=== PATIENT | male | born 1985 | race Caucasian/White ===

== ENCOUNTER 2020-09-05 22:25 | Emergency (ER) | payer OTHER ==
[2020-09-05 22:50] LABS: BASOPHIL 0.7 % (0-2); HCT 45.4 % (42.0-52.0); HGB 15.6 g/dl (13.2-18.0); MCH 30.2 pg (25.0-31.0); MCHC 34.4 g/dL (32.0-36.0); MCV 87.8 fL (78.0-100.0); MONOCYTE 9.9 % (0-12); MPV 9.4 fL (6.0-9.5); NRBC 0; PLT 343 K/uL (150-400); RBC 5.17 M/uL (4.70-6.00); WBC 10.7 K/uL (4.0-10.5)
[2020-09-05 22:57] LABS: BILIRUBIN NEGATIVE (NEGATIVE); BLOOD NEGATIVE Ery/uL (NEGATIVE); CLARITY CLEAR (CLEAR); COLOR YELLOW (YELLOW); GLUCOSE (U) NORMAL (NORMAL); LEUKOCYTES NEGATIVE Leu/uL (NEGATIVE); NITRITE NEGATIVE (NEGATIVE); PROTEIN NEGATIVE (NEGATIVE); UROBILINOGEN 0.2 mg/dL (0.2-1.0); pH 6.5 (5.0-9.0)
[2020-09-05 23:01] LABS: AMPHETAMINES NEGATIVE (NEGATIVE); BARBITURATES NEGATIVE (NEGATIVE); ECSTASY (MDMA) NEGATIVE (NEGATIVE); MARIJUANA (THC) NEGATIVE (NEGATIVE); METHADONE NEGATIVE (NEGATIVE); OPIATES POSITIVE (NEGATIVE); OXYCODONE NEGATIVE (NEGATIVE)
[2020-09-05 23:08] LABS: ALBUMIN 3.7 g/dL (3.4-5.0); BILIRUBIN - TOTAL 0.5 mg/dL (0.2-1.0); BUN/CREAT RATIO (CALC) 11.2 RATIO; C-REACTIVE PROTEIN 10.3 mg/dL (<=0.90); CREATININE 0.98 mg/dL (0.67-1.17); POTASSIUM 3.6 mmol/L (3.5-5.1); TOTAL PROTEIN 7.7 g/dL (6.4-8.2)
[2020-09-06] MEDS ORDERED: MEDROL 4MG DOSEP4 MG PO (00:41)
[2020-09-06] MEDS ORDERED: CIPRO500 MG PO (00:41)
[2020-09-06] MEDS ORDERED: MAGICMW SSW (00:41)
[2020-09-06] MEDS ORDERED: METRONIDAZOLE500 MG PO (00:41)
== END 2020-09-06 00:56 | disposition home or self-care (01) ==
LOC: FER 22:25
PROVIDERS: Emergency Medicine Emergency Medical Services
DX: R10.12 Left upper quadrant pain (principal); R11.2 Nausea with vomiting, unspecified; K21.9 Gastro-esophageal reflux disease without esophagitis; Z87.19 Personal history of other diseases of the digestive system; Z90.49 Acquired absence of other specified parts of digestive tract; Z79.899 Other long term (current) drug therapy
CPT/HCPCS: 36415; 74022; 80053; 80305; 81003; 83605; 83690; 84145; 85025; 86140; 87339; J1885; J2405; J2930; J7030

== ENCOUNTER 2021-03-14 18:20 | Emergency (ER) | payer OTHER ==
[~2021-03-14 18:20] MED LIST: CIPRO500 MG PO; MAGICMW SSW; MEDROL 4MG DOSEP4 MG PO; METRONIDAZOLE500 MG PO
[2021-03-14 22:06] LABS: BASOPHIL 0.6 % (0-2); EOSINOPHIL 1.3 % (0-5); HCT 47.3 % (42.0-52.0); HGB 16.1 g/dl (13.2-18.0); LYMPHOCYTE 23.6 % (15-48); MCH 29.9 pg (25.0-31.0); MCV 87.9 fL (78.0-100.0); MONOCYTE 6.8 % (0-12); MPV 9.8 fL (6.0-9.5); NEUTROPHIL 66.7 % (41-80); NRBC 0; PLT 357 K/uL (150-400); RBC 5.38 M/uL (4.70-6.00); RDW 13.3 % (11.5-14.0); WBC 12.6 K/uL (4.0-10.5)
[2021-03-14 22:27] LABS: BUN/CREAT RATIO (CALC) 14.3 RATIO; CREATININE 0.98 mg/dL (0.67-1.17); POTASSIUM 4.1 mmol/L (3.5-5.1)
== END 2021-03-14 22:48 | disposition left against medical advice (07) ==
LOC: FER 18:20
PROVIDERS: Nurse Practitioner Family
DX: Z53.29 Procedure and treatment not carried out because of patient's decision for other reasons (principal)
CPT/HCPCS: 36415; 80048; 85025; 99281